=== PATIENT | female | born 1985 | race African-American/Black ===

== ENCOUNTER → 2022-03-05 | Day surgery (SDC) | payer OTHER ==
[~2022-03-05] VITALS: Ht 175.3 cm; Wt 77.1 kg
[~2022-03-05] MED LIST: BUPIVACAINE HCL/PF 0.5% (5MG/ML) 10ML ONE; CHOL500010 PO; CYAN100086 PO; FENTANYL CITRATE/PF 50MCG/ML 2ML VIAL ONE; HYDROCODONE/ACETAMINOPHEN 5/325MG TABLET PO NR; LACTATED RINGERS 1,000 ML IV SCH; LIDOCAINE HCL 1% 10 MG/ML 10ML VIAL ONE; MIDAZOLAM HCL 2 MG/2 ML VIAL ONE; MULT-1146 PO; PROPOFOL 200MG/20ML VIAL IV ONE; SKIN ADHESIVE 0.7 GM EA TOP ONE; ZINC50TA62 PO
[2022-03-05 08:15] LABS: UCG SCREEN NEGATIVE
[2022-03-05 12:36] VITALS: BP 135/74
== END | disposition home or self-care (01) ==
LOC: OR 07:00
PROVIDERS: ATTEND Specialist
DX: N63.20 Unspecified lump in the left breast, unspecified quadrant (principal); Z79.899 Other long term (current) drug therapy; Z98.890 Other specified postprocedural states; Z20.822 Contact with and (suspected) exposure to COVID-19
CPT/HCPCS: 19301; 81025; 87426; 88305; C9803; J2250; J2704; J3010; J3490